=== PATIENT | male | born 1980 | race Caucasian/White ===

== ENCOUNTER 2019-08-26 15:41 | Outpatient (CLI) | payer BC, SELFPAY ==
--- NOTE | 2019-08-26 19:41 | ONC FU_ITS ---
Dr. Mason Patient Follow-Up Note Patient: Jl Navarro Unit #: [id number]: 1980 Dicatated By: Jerome Mason M.D.Date of Visit:Aug 26, 2019 Onc Med Follow-up/Prog Note Chief Complaint: Hemochromatosis. History of Present Illness: This is a 39 year-old man with hereditary hemochromatosis. He has been in excellent general health. In September 2015 he had gone to [facility] for a spot check , because that service was available to him through his insurance. He was mainly concerned about the possibility of obstructive sleep apnea, because his had reported that he snored heavily. There were no significant abnormalities noted on his sleep study. His laoboratory studies from 10/05/2015 included a CBC showing elevated hemoglobin/hematocrit levels at 17.9 g and 51% with normal white count at 6500 and normal platelet count at 201,000. The serum iron was significantly elevated at 246 mcg/dL with transferrin saturation greater than 90%. The ferritin level was at the upper limit of normal at 328 ng/L. His subsequent evaluation included an HFE gene analysis which showed 2 copies of the C282Y mutation. I had seen him initially on 02/16/2016, and he then started monthly phlebotomies. By June 2016 the transferrin saturation was down to 36% and the ferritin was down to 82 ng/mL. By July 2016 the ferritin was down to 33 ng/mL. His last phlebotomy was in June 2016. He was seen for a follow-up visit again in August 2017. His transferrin saturation was elevated at 54% with ferritin 66 ng/mL. At that point he was recommended to continue regular phlebotomies every 3 months. He continued that until February 2018. His medical history is otherwise significant for xanthelasma, and his lipid profile did appear to show evidence of hyperlipidemia. He has had no other medical illnesses. He is a nonsmoker. INTERIM HISTORY: His laboratory studies from 07/17/2018 included CBC showing hemoglobin 15.9 g, white blood cell count 5700, and platelet count 201,000. The red cell indices were normal. The ferritin was low at 19 ng/mL, but the transferrin saturation was again elevated at 53%. He had one additional phlebotomy. As of January 2019 the ferritin had decreased to 10 ng/mL with his transferrin saturation 26%. By June 2019 the ferritin was still low at 13 ng/mL. The transferrin saturation had increased to 51%. He is seen for a scheduled visit. He has been feeling good generally. He has good energy and he has normal activity. ECOG score is 0. His appetite is good and his weight is been stable. He has no fever or night sweats, but he sometimes does feel hot at night. He has no shortness of breath, cough, or chest pain. He has no GI or complaints. He has a little bit of joint pain in his hands and wrists, and he sometimes has a little numbness in his fingers. Medications: Ibuprofen Tablet Oral PRN Allergies: No Known Allergies. Review of Systems: Constitutional - He has good energy and activity tolerance. Appetite is good and weight is stable. He occasionally gets hot at night. He has no fever or night sweating. ECOG score is 0, ENMT - He has seasonal allergy related sinus symptoms. No mouth sores. No sore throat or difficulty swallowing, Hematologic/Lymphatic - No abnormal bruising or bleeding, Respiratory - No shortness of breath. No cough. No pleuritic pain or hemoptysis, Cardiovascular - No angina pain. No palpitations, Gastrointestinal - No nausea or vomiting. He has just occasional heartburn. No diarrhea or constipation. No blood in the stool or black stools, Genitourinary (M) - No dysuria or hematuria. No urinary frequency. No urgency or incontinence, Musculoskeletal - He has a little joint pain in his hands and wrists, Integumentary - No skin complications, Neurologic - He has occasional headaches. No dizziness. He has a little numbness in his fingers at times. He has no other focal neurologic symptoms, Psychiatric - No anxiety or depression. No insomnia. Vital Signs: Performed on Aug 26, 2019 15:48 Height - 72.00 in Weight - 193.0 lbs (HIGH) BSA - 2.10 sq.m BMI - 26.18 Temperature - 97.6 F (LOW) Pulse - 99 /min Respiration - 18 /min BP - 129/88 mm(hg) O2 Sat - 98 % Pain - 0 Physical Examination: Constitutional - He looks good generally, Eyes - Sclerae nonicteric. Conjunctivae clear, ENMT - No lesions noted in the oral cavity, Hematologic/Lymphatic - No cervical, clavicular, or axillary adenopathy, Respiratory - Lungs are clear with good air movement bilaterally, Cardiovascular - Heart rhythm is regular. There is no murmur, gallop, or rub noted, Abdomen - Soft. Liver and spleen are not enlarged. There is no abdominal mass or ascites noted and there is no inguinal adenopathy, Extremities - No edema, Neurologic - No focal neurologic deficits noted. Lab/Imaging: Test performed on Aug 26, 2019 10:55 Glucose 78.0 mg/dL BUN 17.0 mg/dL Creatinine 1.1 mg/dL Cr Clearance (Est) 110.5400 mL/min BUN/Creatinine Ratio 15.45 Absolute Value Sodium 136 mmol/L Potassium 4.2 mmol/L Chloride 100.0 mmol/L CO2 31.0 mmol/L Calcium 9.3 mg/dL Protein, Total 6.7 g/dL Albumin 4.1 g/dL Globulin 2.6 g/dL A/G Ratio 1.6 Absolute Value Bilirubin, Total 0.9 mg/dL Alkaline Phosphatase 65.0 IU/L AST (SGOT) 25.0 IU/L ALT (SGPT) 23.0 IU/L WBC 6.4 10^9/L RBC 5.46 10^12/L HGB 16.9 g/dL HCT 51.1 % MCV 93.5 fl MCH 31.0 pg MCHC 33.2 g/dL RDW 13.0 % Platelet Count 204.0 10^9/L Neutrophils (Gran) 3.6 10^9/L Lymphocytes 2.5 10^9/L Monocytes 0.4 10^9/L Manual Lymphocytes 38.6 % Manual Monocytes 5.7 % Impression: 1. Patient with hereditary hemochromatosis, confirmed to be homozygous for the C282Y mutation by HFE gene analysis on 10/05/2015. He had elevated transferrin saturation, but with serum ferritin just at the upper limit of normal at initial diagnosis. 2. Xanthelasma/dyslipidemia. He began a phlebotomy program in February 2016. By June 2016 his transferrin saturation was down to 36% and by July 2016 the ferritin was down to 33 ng/mL. His last phlebotomy was in June 2016. As of August 2017 his transferrin saturation was elevated at 54%, but with ferritin and neck supple range at 66 ng/mL. That point he did restart phlebotomies every 3 months, which he continued until February 2018. His repeat lab studies in July 2018 again showed mildly elevated transferrin saturation at 53%, but with ferritin a little low at 19 ng/mL. He had one additional phlebotomy. Since then his ferritin level has remained low, in the iron deficiency range. His serum iron studies, though, continue to show slightly elevated transferrin saturation. His clinical status has remained stable. Plan: He will be monitored on observation until there is a significant increase in either the ferritin or the transferrin saturation. I will repeat his serum iron studies and ferritin with his scheduled visit with Dr. Welch in January and every 3 months thereafter. I will see him again in 1 year, or sooner as needed. Signed By: Jerome Mason M.D. <<Signature on File>>
== END 2019-08-26 15:42 | disposition home or self-care (01) ==
LOC: ONCMED 15:42
PROVIDERS: Family Provider Family Medicine; PCP Family Medicine; Visit Provider Internal Medicine Medical Oncology
DX: E83.110 Hereditary hemochromatosis (principal); H02.60 Xanthelasma of unspecified eye, unspecified eyelid; E78.5 Hyperlipidemia, unspecified
CPT/HCPCS: G0463

== ENCOUNTER → 2022-02-15 07:26 | Day surgery (SDC) | payer BC, SELFPAY ==
[2022-02-15 07:13] VITALS: BMI 24.4
[2022-02-15 07:48] LABS: Hematocrit 52.1 % (42.0-52.0); Hemoglobin 17.7 g/dL (11.7-16.6)
[2022-02-15 08:48] VITALS: BP 146/85; PULSE 80; RESP 18; TEMP 36.1; O2SAT 100
== END ==
PROVIDERS: PCP Family Medicine; Visit Provider Family Medicine
DX: E83.119 Hemochromatosis, unspecified (principal)
CPT/HCPCS: 85014; 85018; 99195

== ENCOUNTER 2022-07-12 08:41 | Oncology outpatient (recurring) (ONCR) | payer OTHER, SELFPAY ==
[2022-07-12 09:52] LABS: Basophils % 0.6 %; Eosinophils # 0.1 10^3/uL (0.0-0.8); Eosinophils % 1.2 %; Hematocrit 47.8 % (42.0-52.0); Hemoglobin 16.4 g/dL (11.7-16.6); Lymphocytes # 1.7 10^3/uL (0.8-4.8); Lymphocytes % 33.3 %; Mean Corpuscular HGB Conc 34.3 g/dL (30.0-36.0); Mean Corpuscular Hemoglobin 31.8 pg (28.0-34.0); Mean Corpuscular Volume 92.6 fl (80-94); Mean Platelet Volume 10.7 fL (7.4-10.4); Monocytes # 0.4 10^3/uL (0.2-0.9); Monocytes % 8.8 %; Neutrophils # 2.79 10^3/uL (1.8-7.7); Neutrophils % 55.9 %; Nucleated Red Blood Cells % 0 %; Platelet Count 171 10^3/cmm (130-400); Red Blood Count 5.16 10^6/uL (4.1-5.3); Red Cell Distribution Width 11.7 % (12.1-15.1)
[2022-07-12 10:11] LABS: Iron 186 ug/dL (59-158); Percent Saturation 90.7 % (20-50); Total Iron Binding Capacity 205 mcg/dl; Unsaturated Iron Binding 19 ug/dL (112-347)
[2022-07-12] MEDS: sodium chloride 0.9% 250 ML IV (10:35)
[2022-07-12 11:21] VITALS: BP 123/77; PULSE 75; O2SAT 98
== END 2022-08-06 23:59 | disposition home or self-care (01) ==
PROVIDERS: PCP Family Medicine; Visit Provider Internal Medicine Medical Oncology
DX: E83.110 Hereditary hemochromatosis (principal)
CPT/HCPCS: 36415; 83540; 83550; 85025; 96374; 99195; J7050

== ENCOUNTER 2022-08-30 08:48 | Oncology outpatient (recurring) (ONCR) | payer OTHER, SELFPAY ==
[2022-08-30 09:42] LABS: Basophils % 0.8 %; Eosinophils # 0.1 10^3/uL (0.0-0.8); Eosinophils % 1.4 %; Hematocrit 47.7 % (42.0-52.0); Hemoglobin 16.7 g/dL (11.7-16.6); Lymphocytes # 1.8 10^3/uL (0.8-4.8); Mean Corpuscular Hemoglobin 32.5 pg (28.0-34.0); Mean Corpuscular Volume 92.8 fl (80-94); Mean Platelet Volume 10.4 fL (7.4-10.4); Monocytes # 0.4 10^3/uL (0.2-0.9); Monocytes % 8.1 %; Neutrophils # 2.54 10^3/uL (1.8-7.7); Neutrophils % 52.5 %; Nucleated Red Blood Cells % 0 %; Platelet Count 176 10^3/cmm (130-400); Red Blood Count 5.14 10^6/uL (4.1-5.3); Red Cell Distribution Width 11.7 % (12.1-15.1); White Blood Count 4.8 10^3/uL (4.0-10.0)
[2022-08-30 10:03] LABS: Ferritin 34 ng/mL (30-400); Iron 102 ug/dL (59-158); Percent Saturation 46.5 % (20-50); Total Iron Binding Capacity 219 mcg/dl; Unsaturated Iron Binding 117 ug/dL (112-347)
== END 2022-09-03 23:59 | disposition home or self-care (01) ==
PROVIDERS: PCP Family Medicine; Visit Provider Internal Medicine Medical Oncology
DX: E83.119 Hemochromatosis, unspecified (principal)
CPT/HCPCS: 36415; 82728; 83540; 83550; 85025

== ENCOUNTER 2023-03-31 17:04 | Outpatient (CLI) | payer OTHER, SELFPAY ==
[2023-03-31 17:34] LABS: Basophils % 0.7 %; Eosinophils # 0.1 10^3/uL (0.0-0.8); Eosinophils % 2.2 %; Hematocrit 46.5 % (37-53); Lymphocytes # 2.2 10^3/uL (0.8-4.8); Lymphocytes % 37.1 %; Mean Corpuscular HGB Conc 35.5 g/dL (30-55); Mean Corpuscular Hemoglobin 32.2 pg (27-33); Mean Corpuscular Volume 90.8 fl (82-101); Mean Platelet Volume 10.6 fL (7.4-10.4); Monocytes # 0.4 10^3/uL (0.2-0.9); Monocytes % 6.3 %; Neutrophils # 3.21 10^3/uL (1.8-7.7); Neutrophils % 53.5 %; Nucleated Red Blood Cells % 0 %; Platelet Count 205 10^3/cmm (157-399); Red Blood Count 5.12 10^6/uL (3.85-5.65); Red Cell Distribution Width 11.5 % (12.1-15.1); White Blood Count 5.99 10^3/uL (3.29-11.43)
[2023-03-31 18:21] LABS: Alanine Aminotransferase 20 U/L (0-41); Albumin Level 4.2 g/dL (3.5-5.2); Alkaline Phosphatase 73 U/L (40-130); Anion Gap 15.2 (5-19); Aspartate Amino Transferase 16 U/L (0-40); Blood Urea Nitrogen 17 mg/dL (6-20); Calcium 8.4 mg/dL (8.5-10.5); Carbon Dioxide 24 mmol/L (22-29); Chloride 104 mmol/L (98-107); Ferritin 92 ng/mL (30-400); Globulin 2.2 g/dL (1.3-4.6); Glomerular Filtration Rate 81.6 mL/min (90-130); Glucose 103 mg/dL (65-115); Iron 182 ug/dL (59-158); Osmolality Calculated 290 mOsm/kg (285-295); Potassium 4.2 mmol/L (3.5-5.1); Sodium 139 mmol/L (136-145); Total Bilirubin 0.4 mg/dL (0.15-1.2); Total Protein 6.4 g/dL (6.6-8.7)
[2023-03-31 18:32] LABS: Percent Saturation 88.7 % (20-50); Total Iron Binding Capacity 205 mcg/dl; Unsaturated Iron Binding 23 ug/dL (112-347)
== END 2023-03-31 17:05 | disposition home or self-care (01) ==
PROVIDERS: PCP Family Medicine; Visit Provider Internal Medicine Medical Oncology
DX: E83.110 Hereditary hemochromatosis (principal)
CPT/HCPCS: 36415; 80053; 82728; 83540; 83550; 85025

== ENCOUNTER 2023-07-02 10:28 | Oncology outpatient (recurring) (ONCR) | payer OTHER, SELFPAY ==
[2023-07-02 10:40] VITALS: BP 142/93; PULSE 77; RESP 16; TEMP 36.1; O2SAT 98
[2023-07-02 11:05] LABS: Basophils % 0.7 %; Eosinophils # 0.1 10^3/uL (0.0-0.8); Eosinophils % 1.1 %; Hematocrit 49.3 % (37-53); Lymphocytes # 2.5 10^3/uL (0.8-4.8); Lymphocytes % 42.9 %; Mean Corpuscular HGB Conc 34.7 g/dL (30-55); Mean Corpuscular Hemoglobin 32.1 pg (27-33); Mean Corpuscular Volume 92.7 fl (82-101); Mean Platelet Volume 10.5 fL (7.4-10.4); Monocytes # 0.4 10^3/uL (0.2-0.9); Monocytes % 6.7 %; Neutrophils # 2.77 10^3/uL (1.8-7.7); Neutrophils % 48.4 %; Nucleated Red Blood Cells % 0 %; Platelet Count 192 10^3/cmm (157-399); Red Blood Count 5.32 10^6/uL (3.85-5.65); Red Cell Distribution Width 11.9 % (12.1-15.1); White Blood Count 5.71 10^3/uL (3.29-11.43)
[2023-07-02 11:22] LABS: Iron 136 ug/dL (59-158); Unsaturated Iron Binding 61 ug/dL (112-347)
[2023-07-02 11:23] LABS: Ferritin 77 ng/mL (30-400); Total Iron Binding Capacity 197 mcg/dl
== END 2023-07-06 23:59 | disposition home or self-care (01) ==
LOC: ONCMED 10:29
PROVIDERS: Internal Medicine Medical Oncology; PCP Family Medicine; Visit Provider Family Medicine
DX: D75.1 Secondary polycythemia (principal); E83.119 Hemochromatosis, unspecified
CPT/HCPCS: 36415; 82728; 83540; 83550; 85025; 99195

== ENCOUNTER 2024-04-06 13:49 | Oncology outpatient (recurring) (ONCR) | payer OTHER, SELFPAY ==
[2024-04-06 14:29] LABS: Basophils % 0.7 %; Eosinophils # 0.1 10^3/uL (0.0-0.8); Hematocrit 45.1 % (37-53); Lymphocytes # 2.1 10^3/uL (0.8-4.8); Lymphocytes % 34.8 %; Mean Corpuscular Hemoglobin 31.8 pg (27-33); Mean Corpuscular Volume 90.7 fl (82-101); Mean Platelet Volume 10.7 fL (7.4-10.4); Monocytes # 0.4 10^3/uL (0.2-0.9); Monocytes % 5.9 %; Neutrophils # 3.51 10^3/uL (1.8-7.7); Neutrophils % 57.4 %; Nucleated Red Blood Cells % 0 %; Platelet Count 191 10^3/cmm (157-399); Red Blood Count 4.97 10^6/uL (3.85-5.65); Red Cell Distribution Width 11.8 % (12.1-15.1)
[2024-04-06 14:41] LABS: Alanine Aminotransferase 15 U/L (0-41); Albumin Level 3.9 g/dL (3.5-5.2); Alkaline Phosphatase 64 U/L (40-130); Anion Gap 14.6 (5-19); Aspartate Amino Transferase 14 U/L (0-40); Blood Urea Nitrogen 13 mg/dL (6-20); Calcium 8.6 mg/dL (8.5-10.5); Carbon Dioxide 26 mmol/L (22-29); Chloride 104 mmol/L (98-107); Ferritin 53 ng/mL (30-400); Globulin 2.1 g/dL (1.3-4.6); Glomerular Filtration Rate 81.2 mL/min (90-130); Glucose 149 mg/dL (65-115); Iron 120 ug/dL (59-158); Osmolality Calculated 295 mOsm/kg (285-295); Percent Saturation 64.8 % (20-50); Potassium 3.6 mmol/L (3.5-5.1); Sodium 141 mmol/L (136-145); Total Bilirubin 0.4 mg/dL (0.15-1.2); Total Iron Binding Capacity 185 mcg/dl; Unsaturated Iron Binding 65 ug/dL (112-347)
[2024-04-06 15:32] VITALS: BP 132/91; PULSE 86; RESP 16; TEMP 36.4; O2SAT 96
== END 2024-05-06 23:59 | disposition home or self-care (01) ==
PROVIDERS: Internal Medicine Medical Oncology; PCP Family Medicine; Visit Provider Family Medicine
DX: E83.110 Hereditary hemochromatosis (principal)
CPT/HCPCS: 36415; 80053; 82728; 83540; 83550; 85025; 99195